=== PATIENT | female | born 1995 | race Hispanic/Latino ===

== ENCOUNTER 2019-05-28 09:23 | Emergency (ER) | payer MEDICAID ==
[2019-05-28] MEDS ORDERED: ALBUTEROL SULFATE 0.083% 2.5 MG/3 ML INH IH ONE (10:15)
[2019-05-28] MEDS ORDERED: DEXAMETHASONE SOD PHOSPHATE 10MG/ML 1ML VIAL ONE (10:18)
[2019-05-28] MEDS ORDERED: GUAIFENESIN-DM 200/20 MG 10 ML ONE (10:18)
[2019-05-28] MEDS ORDERED: BENZONATATE 100 MG CAPSULE PO ONE (10:19)
== END 2019-05-28 11:57 | disposition home or self-care (01) ==
LOC: EDH 09:23
DX: J20.9 Acute bronchitis, unspecified (principal)
CPT/HCPCS: 71045; 94640; 96372; 99284; J1100

== ENCOUNTER 2019-10-15 14:18 | Emergency (ER) | payer MEDICAID, OTHER ==
[2019-10-15 15:08] LABS: APPEARANCE,URINE Clear (CLEAR); BILIRUBIN,URINE Negative (NEGATIVE); COLOR,URINE Yellow (YELLOW); GLUCOSE, URINE (UA) Negative (NEGATIVE); KETONES,URINE Negative (NEGATIVE); LEUKOCYTE ESTERASE ,URINE Small (NEGATIVE); NITRATE,URINE Negative (NEGATIVE); OCCULT BLOOD,URINE Large (NEGATIVE); PH,URINE 5.5 (5.0-8.0); PROTEIN,URINE Negative (NEGATIVE)
[2019-10-15 15:16] LABS: AMPHET/METH SCREEN,URINE NEGATIVE (NEGATIVE); BARBITURATE SCREEN, URINE NEGATIVE (NEGATIVE); BENZODIAZEPINES SCREEN,URINE NEGATIVE (NEGATIVE); CANNABINOID SCREEN,URINE POSITIVE (NEGATIVE); COCAINE SCREEN,URINE POSITIVE (NEGATIVE); OPIATE SCREEN,URINE NEGATIVE (NEGATIVE); PHENCYCLIDINE SCREEN,URINE NEGATIVE (NEGATIVE)
[2019-10-15 15:18] LABS: HCG,QUAL RESULT NEGATIVE (NEGATIVE)
[2019-10-15 15:40] LABS: BACTERIA,URINE Rare /HPF (None Seen); MUCUS,URINE Few LPF (None Seen); SQUAMOUS EPITHELIAL CELL,UR Few /HPF (0-2); TRICHOMONAS,URINE Rare /LPF (None Seen)
== END 2019-10-15 15:56 | disposition home or self-care (01) ==
LOC: EDH 14:18
DX: N94.6 Dysmenorrhea, unspecified (principal)
CPT/HCPCS: 80305; 81001; 81025